=== PATIENT | male | born 1940 | race African-American/Black ===

== ENCOUNTER 2019-04-16 10:44 | Emergency (ER) | payer MEDICARE, MEDICAID ==
[~2019-04-16] VITALS: Ht 175.3 cm; Wt 78.0 kg
[2019-04-16] MEDS ORDERED: KETOROLAC 30MG/ML VIAL IM ONE (11:30)
[2019-04-16] MEDS ORDERED: HYDROCODONE/ACETAMINOPHEN 5/325MG TABLET PO ONE (11:30)
[2019-04-16 13:10] VITALS: BP 132/81
== END 2019-04-16 13:22 | disposition home or self-care (01) ==
LOC: ER 11:03
DX: M54.5 Low back pain (principal); G89.29 Other chronic pain; I10 Essential (primary) hypertension
CPT/HCPCS: 96372; 99283; J1885